=== PATIENT | male | born 1940 | race African-American/Black ===

== ENCOUNTER 2018-11-10 16:22 | Emergency (ER) | payer OTHER, MEDICARE ==
--- OUTSIDE RECORDS SUMMARY | 2018-11-10 16:24 | XMS REPORT ---
:1940 [facility] Organization [facility] Address [address] [place] [address] [place] [id number] Care Team Providers Name Role Phone RAKEL KIDD Primary Care Provider Unavailable Problems This patient has no known problems. Allergies, Adverse Reactions, Alerts This patient has no known allergies or adverse reactions. Medications This patient has no known medications. Encounters Start End Encounter Admission Attending Care Care Encounter Date/Time Date/Time Type Type Clinicians Facility Department ID 2017-03-13 2017-03-13 Outpatient [facility] [id number] 13:31:00 13:31:00 2017-02-17 2017-02-17 Outpatient [facility] [id number] 10:49:00 10:49:00 Results Test Description Test Time Test Comments Text Results Atomic Results Result Comments XR BONE DENSITY (DXA)-AXIAL 2017-02-17 12:00:01 Location code: R 16HISTORY : Z79.899: OTHER FILM TESTS CHECKER (CURRENT) DRUG THERAPY COMPARISON: None.FINDINGS: Right femoral neck bone mineral density: 0.835 g/cm2, T score is -1.6,Z-score is not available. According to WHO classification, findings areosteopenic.Right hip total bone mineral density: 0.914 g/cm2, T score is -1.4,Z-score is not available. According to WHO classification, findings areosteopenic.Lumbar spine total bone mineral density: 1.231 g/cm2, T score is -0.7,Z-score is not available. According to WHO classification, findings arenormal. Impression:Bone mineralization by WHO Classification is osteopenia.The World Health Organization established that osteoporosis occurs at-2.5 SD below peak bone mass. In addition, osteopenia occurs at -1.0 SDto -2.5 SD below peak bone mass. Low bone mass is the single mostaccurate predictor for fracture risk.
[2018-11-10 17:14] LABS: Absolute Lymphocytes (CBC) 1.1 K/uL (0.7-4.9); Basophils % 0.4 % (0-1.3); Eosinophils % 1.7 % (0-4.4); Hematocrit 36.5 % (39.6-49.0); Lymphocytes % 9.7 % (15.3-44.8); MPV 6.6 fL (7.6-11.3); Monocytes % 8.7 % (3.3-12.3); RBC Red Blood Cell Count 4.19 M/uL (4.33-5.43)
[2018-11-10 17:15] LABS: Protime INR 1.05
--- NOTE | 2018-11-10 17:21 | RAD REPORT ---
EXAM DESCRIPTION: CT - Head Brain Wo Cont - 11/10/2018 5:14 pm CLINICAL HISTORY: Transient alteration of awareness, relapse COMPARISON: None. TECHNIQUE: Axial 5 mm thick images of the head were obtained without IV contrast. All CT scans are performed using dose optimization technique as appropriate and may include automated exposure control or mA/KV adjustment according to patient size. FINDINGS: No intracranial hemorrhage, mass, edema or shift of mid-line structures. No acute infarcti on changes seen. Mild atrophy and mild chronic ischemic change present. Ventricles are in proportion. Arterial and physiologic calcifications are present. Mastoid air cells and visualized portions of the paranasal sinuses are clear. No acute bony findings. IMPRESSION: Mild atrophy and chronic ischemic change. No acute intracranial finding seen.
[2018-11-10 17:43] LABS: ALT/SGPT 32 U/L (12-78); AST/SGOT 25 U/L (15-37); Albumin 3.5 g/dL (3.4-5.0); Alkaline Phosphatase 137 U/L (45-117); BUN Blood Urea Nitrogen 30 mg/dL (7-18); Bicarbonate 27 mmol/L (21-32); Bilirubin Direct 0.1 mg/dL (0-0.2); Bilirubin Total 0.4 mg/dL (0.2-1.0); Glucose Level 103 mg/dL (74-106); Magnesium 1.8 mg/dL (1.8-2.4); NT PRO-BNP 59 pg/mL (<450); Potassium 4.3 mmol/L (3.5-5.1); Protein, Total 7.8 g/dL (6.4-8.2); Sodium Level 139 mmol/L (136-145); Troponin (Emerg Dept Use Only) < 0.02 ng/mL (0.0-0.045)
--- NOTE | 2018-11-10 18:04 | RAD REPORT ---
EXAM DESCRIPTION: RAD - Chest Single View - 11/10/2018 5:36 pm CLINICAL HISTORY: Weakness, shortness of breath, altered mental status, hypertension COMPARISON: None. TECHNIQUE: AP portable chest image was obtained 1711 hours . FINDINGS: No peripheral mass or consolidation seen. No failure or volume overload. Left subclavian p acemaker in place. Heart and vasculature are normal. No measurable pleural effusion and no pneumothor ax. Piotr lumbar scoliotic changes and degenerative changes present. No acute bony abnormality seen. No acute aortic findings suspected. IMPRESSION: No acute cardiopulmonary process.
[2018-11-10] MEDS ORDERED: NA CHLORIDE 0.9% 1,000 ML ONE (19:09)
[2018-11-10 19:10] LABS: Urine Bacteria 20-50 /HPF (NONE SEEN); Urine Culture Reflex Order REFLEXED
[2018-11-10 19:18] LABS: Urine Blood 2+ (NEG); Urine Glucose NEGATIVE (NEG); Urine Protein 2+ (NEG); Urine Specific Gravity 1.015 (1.005-1.030); Urine pH 5.5 (5.0-7.0)
--- NOTE | 2018-11-10 19:20 | ER ---
Nurse's Notes [facility] Name: Chang De La Fuente Age: 78 yrs Sex: Male : 1940 Arrival Date: 11/10/2018 Time: 16:18 Bed 7 Private MD: Diagnosis: Dysequilibrium;dehydration;UTI;renal insufficiency Presentation: 11/10 16:19 Presenting complaint: EMS states: for a few months, pt has been shaking, cognitive hj function decreases per and shows lapses in memories; per [place] staff clinic, pt SBP is on 80 or 70's; EMS manual 130/70;. Transition of care: patient was not received from another setting of care. Onset of symptoms was November 10, 2018. Risk Assessment: Do you want to hurt yourself or someone else? Patient reports no desire to harm self or others. Initial Sepsis Screen: Does the patient meet any 2 criteria? No. Patient's initial sepsis screen is negative. Does the patient have a suspected source of infection? No. Patient's initial sepsis screen is negative. Care prior to arrival: None. 16:19 Method Of Arrival: EMS: [facility] 16:19 Acuity: ELY 3 hj Triage Assessment: 16:19 General: Appears in no apparent distress. uncomfortable, Behavior is calm, cooperative, hj appropriate for age. Pain: Denies pain. Historical: - Allergies: 16:19 No Known Allergies; hj - Home Meds: 16:19 amlodipine 5 mg tab 1 tab once daily [Active]; atorvastatin 80 mg oral tab 1 tab once hj daily [Active]; lisinopril-hydrochlorothiazide 20-12.5 mg oral tab 1 tab once daily [Active]; prazosin 2 mg Oral cap 1 cap 2 times per day [Active]; sertraline 100 mg oral tab 1 tab once daily [Active]; tamsulosin 0.4 mg oral cp24 1 cap once daily [Active]; triamcinolone acetonide 0.025 % Topical lotn 2 times per day [Active]; - PMHx: 16:19 Hyperlipidemia; Hypertension; BPH; hj - PSHx: 16:19 pacemaker; hj - Immunization history:: Adult Immunizations up to date. - Social history:: Smoking status: Patient/guardian denies using tobacco, Patient/guardian denies using alcohol. - Ebola Screening: : Patient negative for fever greater than or equal to 101.5 degrees Fahrenheit, and additional compatible Ebola Virus Disease symptoms Patient denies exposure to infectious person Patient denies travel to an Ebola-affected area in the 21 days before illness onset. - Family history:: not pertinent. - Hospitalizations: : No recent hospitalization is reported. Screenin:19 Abuse screen: Denies threats or abuse. Denies injuries from another. Nutritional hj screening: No deficits noted. Tuberculosis screening: No symptoms or risk factors identified. Fall Risk None identified. Assessment: 16:19 General: Appears in no apparent distress. uncomfortable, Behavior is calm, cooperative, hj appropriate for age. Pain: Denies pain. Neuro: Level of Consciousness is awake, alert, obeys commands, Oriented to person, place, time, situation, Appropriate for age. Cardiovascular: Capillary refill < 3 seconds Patient's skin is warm and dry. Respiratory: Airway is patent Respiratory effort is even, unlabored, Respiratory pattern is regular, symmetrical. GI: No signs and/or symptoms were reported involving the gastrointestinal system. : No signs and/or symptoms were reported regarding the genitourinary system. EENT: No signs and/or symptoms were reported regarding the EENT system. Derm: No signs and/or symptoms reported regarding the dermatologic system. Musculoskeletal: No signs and/or symptoms reported regarding the musculoskeletal system. 17:19 Reassessment: Patient and/or family updated on plan of care and expected duration. Pain hj level reassessed. Patient is alert, oriented x 3, equal unlabored respirations, skin warm/dry/pink. awaiting results and POC:. 18:03 Reassessment: Patient and/or family updated on plan of care and expected duration. Pain hj level reassessed. Patient is alert, oriented x 3, equal unlabored respirations, skin warm/dry/pink. awaiting POC:. 18:40 Reassessment: awaiting POC; family in room;. hj Vital Signs: 16:19 BP 135 / 70; Pulse 66; Resp 18; Temp 98.1(O); Pulse Ox 100% on R/A; Weight 77.11 kg; hj Height 6 ft. 0 in. (182.88 cm); Pain 0/10; 16:40 BP 117 / 74; Pulse 74; Resp 18; Pulse Ox 100% on R/A; hj 18:04 BP 118 / 70; Pulse 72; Resp 18; Pulse Ox 99% on R/A; hj 18:40 BP 131 / 78; Pulse 60; Resp 18; Pulse Ox 99% on R/A; hj 19:42 BP 166 / 83; Pulse 65; Resp 17; Pulse Ox 99% ; Pain 0/10; tl1 20:26 BP 149 / 83; Pulse 68; Resp 17; Temp 98.2; Pulse Ox 100% ; Pain 0/10; tl1 16:19 Body Mass Index 23.06 (77.11 kg, 182.88 cm) ED Course: 16:18 Patient arrived in ED. hj 16:19 Arm band placed on right wrist. hj 16:19 Patient has correct armband on for positive identification. Placed in gown. Bed in low hj position. Call light in reach. Side rails up X 1. Adult w/ patient. 16:19 Maintain EMS IV. Dressing intact. Good blood return noted. Site clean \T\ dry. Gauge \T\ hj site: 20g L FA. 16:22 Triage completed. hj 16:29 Garrick Mota, LING is Primary Nurse. hj 16:36 Chidi Winchester MD is Attending Physician. wa 17:14 CT completed. Patient tolerated procedure well. Patient moved to CT. Patient moved back nj from CT. 17:15 CT Head Brain wo Cont In Process Unspecified. EDMS 17:36 XRAY Chest (1 view) In Process Unspecified. EDMS 19:18 Jason Ansari MD is Referral Physician. wa 20:30 IV discontinued, intact, bleeding controlled, No redness/swelling at site. Pressure tl1 dressing applied. 20:41 No provider procedures requiring assistance completed. tl1 Administered Medications: 18:53 Drug: NS 0.9% 1000 ml Route: IV; Rate: 1 bolus; Site: right forearm; hj 18:56 Follow up: IV Status: Infusion continued upon admission hj 20:27 Follow up: IV Status: Completed infusion tl1 19:30 Drug: Rocephin - (cefTRIAXone) 2 grams Route: IVPB; Infused Over: 30 mins; Site: right tl1 forearm; 20:00 Follow up: IV Status: Completed infusion; IV Intake: 100ml tl1 Intake: 20:00 IV: 100ml; Total: 100ml. tl1 Outcome: 19:19 Discharge ordered by . arturo 20:30 Discharged to home via wheelchair. tl1 20:30 Condition: good 20:30 Discharge instructions given to patient, family, Instructed on discharge instructions, follow up and referral plans. Demonstrated understanding of instructions, follow-up care, medications, Prescriptions given X 1. 20:36 Patient left the ED. tl1 Signatures: Dispatcher [employer] EDMS Griselda Farrell RN RN tl1 Garrick Mota RN RN hj Jordan, Nathan nj Appiah, William, MD MD wa
--- NOTE | 2018-11-10 19:20 | EDPHYS ---
Physician Documentation [facility] Name: Chang De La Fuente Age: 78 yrs Sex: Male : 1940 Arrival Date: 11/10/2018 Time: 16:18 Bed 7 Private MD: ED Physician Chidi Winchester HPI: 11/10 16:58 This 78 yrs old Black Male presents to ER via EMS with complaints of Blood Pressure wa Problem. 16:58 The patient's problem is reported as per pt's , has noted cognitive decline, wa tremor, falls, weakness and memory lapses over the past several months. per EMS, told to come to ED due to low BP although EMS pressure noted wnl. pt has h/o HTN. his PMDs at the [place]. Onset: The symptoms/episode began/occurred 5 month(s) ago. Duration: The episode is continuous. Context: Possible contributing factors include: unknown. as noted in description above. The symptoms are alleviated by nothing. The symptoms are aggravated by nothing. Associated signs and symptoms: Pertinent positives: weakness, Pertinent negatives: abdominal pain, agitation, blurred vision, chest pain, combativeness, confusion, diaphoresis, diarrhea, dizziness, headache, lightheadedness, nausea, numbness, palpitations, seizure, shortness of breath, tingling, vertigo, vomiting. Severity of symptoms: At their worst the symptoms were mild in the emergency department the symptoms are unchanged. Patient's baseline: Neuro: alert and fully oriented, Motor: no deficits, Ambulation: walks without assistance, Speech: normal, The patient has a previous history of HTN. The patient has not experienced similar symptoms in the past. The patient has not recently seen a physician. Historical: - Allergies: 16:19 No Known Allergies; hj - Home Meds: 16:19 amlodipine 5 mg tab 1 tab once daily [Active]; atorvastatin 80 mg oral tab 1 tab once hj daily [Active]; lisinopril-hydrochlorothiazide 20-12.5 mg oral tab 1 tab once daily [Active]; prazosin 2 mg Oral cap 1 cap 2 times per day [Active]; sertraline 100 mg oral tab 1 tab once daily [Active]; tamsulosin 0.4 mg oral cp24 1 cap once daily [Active]; triamcinolone acetonide 0.025 % Topical lotn 2 times per day [Active]; - PMHx: 16:19 Hyperlipidemia; Hypertension; BPH; hj - PSHx: 16:19 pacemaker; hj - Immunization history:: Adult Immunizations up to date. - Social history:: Smoking status: Patient/guardian denies using tobacco, Patient/guardian denies using alcohol. - Ebola Screening: : Patient negative for fever greater than or equal to 101.5 degrees Fahrenheit, and additional compatible Ebola Virus Disease symptoms Patient denies exposure to infectious person Patient denies travel to an Ebola-affected area in the 21 days before illness onset. - Family history:: not pertinent. - Hospitalizations: : No recent hospitalization is reported. ROS: 17:03 Constitutional: Negative for fever, chills, and weight loss, Eyes: Negative for injury, wa pain, redness, and discharge, ENT: Negative for injury, pain, and discharge, Neck: Negative for injury, pain, and swelling, Cardiovascular: Negative for chest pain, palpitations, and edema, Respiratory: Negative for shortness of breath, cough, wheezing, and pleuritic chest pain, Abdomen/GI: Negative for abdominal pain, nausea, vomiting, diarrhea, and constipation, Back: Negative for injury and pain, : Negative for injury, bleeding, discharge, and swelling, MS/Extremity: Negative for injury and deformity, Skin: Negative for injury, rash, and discoloration. 17:03 Neuro: Positive for weakness, tremors, falls, memory lapses. 17:03 All other systems are negative. Exam: 17:03 Constitutional: This is a well developed, well nourished patient who is awake, alert, wa and in no acute distress. Head/Face: Normocephalic, atraumatic. Eyes: Pupils equal round and reactive to light, extra-ocular motions intact. Lids and lashes normal. Conjunctiva and sclera are non-icteric and not injected. Cornea within normal limits. Periorbital areas with no swelling, redness, or edema. ENT: Nares patent. No nasal discharge, no septal abnormalities noted. Tympanic membranes are normal and external auditory canals are clear. Oropharynx with no redness, swelling, or masses, exudates, or evidence of obstruction, uvula midline. Mucous membranes moist. Neck: Trachea midline, no thyromegaly or masses palpated, and no cervical lymphadenopathy. Supple, full range of motion without nuchal rigidity, or vertebral point tenderness. No Meningismus. Chest/axilla: Normal chest wall appearance and motion. Nontender with no deformity. No lesions are appreciated. Cardiovascular: Regular rate and rhythm with a normal S1 and S2. No gallops, murmurs, or rubs. Normal PMI, no JVD. No pulse deficits. Respiratory: Lungs have equal breath sounds bilaterally, clear to auscultation and percussion. No rales, rhonchi or wheezes noted. No increased work of breathing, no retractions or nasal flaring. Abdomen/GI: Soft, non-tender, with normal bowel sounds. No distension or tympany. No guarding or rebound. No evidence of tenderness throughout. Back: No spinal tenderness. No costovertebral tenderness. Full range of motion. Skin: Warm, dry with normal turgor. Normal color with no rashes, no lesions, and no evidence of cellulitis. MS/ Extremity: Pulses equal, no cyanosis. Neurovascular intact. Full, normal range of motion. Psych: Awake, alert, with orientation to person, place and time. Behavior, mood, and affect are within normal limits. 17:03 Neuro: Orientation: is normal, Mentation: is normal, Cranial nerves: grossly normal, Cerebellar function: mild dysmetria noted on ceva-ckilgolsy-lxso, and oaos-pw-nvru, Motor: is normal, Gait: is steady. 19:22 Radiologist reports: atrophy. chronic ischemia wa Vital Signs: 16:19 BP 135 / 70; Pulse 66; Resp 18; Temp 98.1(O); Pulse Ox 100% on R/A; Weight 77.11 kg; hj Height 6 ft. 0 in. (182.88 cm); Pain 0/10; 16:40 BP 117 / 74; Pulse 74; Resp 18; Pulse Ox 100% on R/A; hj 18:04 BP 118 / 70; Pulse 72; Resp 18; Pulse Ox 99% on R/A; hj 18:40 BP 131 / 78; Pulse 60; Resp 18; Pulse Ox 99% on R/A; hj 19:42 BP 166 / 83; Pulse 65; Resp 17; Pulse Ox 99% ; Pain 0/10; tl1 20:26 BP 149 / 83; Pulse 68; Resp 17; Temp 98.2; Pulse Ox 100% ; Pain 0/10; tl1 16:19 Body Mass Index 23.06 (77.11 kg, 182.88 cm) hj MDM: 16:36 Patient medically screened. 17:06 Differential diagnosis: CVA, TIA, Dementia, paralysis, metabolic disorder, now chronic wi condition. will check CT brain and electrolytes. may need out pt MRI if negative work up in ED. Data reviewed: vital signs, nurses notes. 18:49 Test interpretation: by ED physician or midlevel provider: CT brain: chronic ischemic wi changes. mild atrophy. CXR: no acute process. . 18:52 Test interpretation: by ED physician or midlevel provider: wbc 11.4 H/H 12.0/36.5. BUN wa 30, Cr 1.44. . 18:54 Test interpretation: by ED physician or midlevel provider: EKG: HR 61. paced atria. wa 18:55 ED course: fluid bolus for potential dehydration based on UA and BUN/Cr. will await wi urine microscopy to r/o UTI. 19:16 Test interpretation: by ED physician or midlevel provider: UA noted for UTI. rocephin wa given. . Response to treatment: the patient's symptoms have markedly improved after treatment. 19:16 Special discussion: renal insufficient. dehydration? Rocephin given. IV F bolus given. wi will have f/u with neurology for MRI. due to mild dysequilibrium. . 11/10 16:51 Order name: NT PRO-BNP wi 11/10 16:51 Order name: Basic Metabolic Panel 11/10 16:51 Order name: CBC with Diff; Complete Time: 18:51 11/10 16:51 Order name: LFT's; Complete Time: 18:51 11/10 16:51 Order name: Magnesium; Complete Time: 18:51 11/10 16:51 Order name: PT-INR; Complete Time: 18:48 11/10 16:51 Order name: Troponin (emerg Dept Use Only); Complete Time: 18:48 11/10 16:51 Order name: XRAY Chest (1 view); Complete Time: 18:48 11/10 16:52 Order name: NT PRO-BNP; Complete Time: 18:48 EDMS 11/10 16:52 Order name: Basic Metabolic Panel; Complete Time: 18:51 EDMS 11/10 16:52 Order name: Urine Microscopic Only; Complete Time: 19:14 wi 11/10 19:15 Interpretation: Abnormal. wi 11/10 16:52 Order name: TSH; Complete Time: 18:48 wi 11/10 18:51 Order name: Urine Dipstick--Ancillary (enter results) em1 11/10 19:11 Order name: Urine Culture [facility] 11/10 16:51 Order name: EKG; Complete Time: 16:52 wi 11/10 16:51 Order name: Cardiac monitoring; Complete Time: 16:52 wi 11/10 16:51 Order name: EKG - Nurse/Tech; Complete Time: 16:52 wi 11/10 16:51 Order name: IV Saline Lock; Complete Time: 16:52 wi 11/10 16:51 Order name: Labs collected and sent; Complete Time: 16:52 wi 11/10 16:51 Order name: O2 Sat Monitoring; Complete Time: 16:52 wi 11/10 16:51 Order name: CT Head Brain wo Cont; Complete Time: 18:48 wi 11/10 16:52 Order name: Urine Dipstick-Ancillary (obtain specimen); Complete Time: 18:43 wi Administered Medications: 18:53 Drug: NS 0.9% 1000 ml Route: IV; Rate: 1 bolus; Site: right forearm; 18:56 Follow up: IV Status: Infusion continued upon admission 20:27 Follow up: IV Status: Completed infusion tl1 19:30 Drug: Rocephin - (cefTRIAXone) 2 grams Route: IVPB; Infused Over: 30 mins; Site: right tl1 forearm; 20:00 Follow up: IV Status: Completed infusion; IV Intake: 100ml tl1 Disposition: 11/10/18 19:19 Discharged to Home. Impression: Dysequilibrium, dehydration, UTI, renal insufficiency. - Condition is Stable. - Discharge Instructions: Urinary Tract Infection, Adult, Xvvb-wd-Olug, Dehydration, Adult, Hmib-dx-Hlwx. - Prescriptions for Keflex 500 mg Oral Capsule - take 1 capsule by ORAL route every 8 hours for 7 days; 21 capsule. - Medication Reconciliation Form, Thank You Letter, Antibiotic Education, Prescription Opioid Use form. - Follow up: Jason Ansari MD; When: 1 - 2 days; Reason: Recheck today's complaints. - Problem is new. - Symptoms have improved. - Notes: stay hydrated. take antibiotics. do not drive and walk by yourself upstairs. see the neurologist for further evaluation with an MRI. return for any worsening concerns Signatures: Dispatcher [employer] EDGriselda Velasco RN RN tl1 Garrick Mota RN RN Chidi Winchester MD MD wa Corrections: (The following items were deleted from the chart) 20:36 19:19 11/10/2018 19:19 Discharged to Home. Impression: Dysequilibrium; dehydration; tl1 UTI; renal insufficiency. Condition is Stable. Forms are Medication Reconciliation Form, Thank You Letter, Antibiotic Education, Prescription Opioid Use. Follow up: Jason Ansari; When: 1 - 2 days; Reason: Recheck today's complaints. Problem is new. Symptoms have improved. wa
[2018-11-10] MEDS ORDERED: CEFTRIAXONE 1000 MG/VIAL ONE (19:42)
[2018-11-10] MEDS ORDERED: NA CHLORIDE 0.9% 100 ML IV ONE (19:43)
--- NOTE | 2018-11-11 06:54 | EKG ---
Test Date: 2018-11-10 Test Time: 16:16:50 [facility]: [facility] MEASUREMENT RESULTS: Intervals: Rate: 61 VT: 218 QRSD: 100 QT: 392 QTc: 394 Dewy Rose: P: 58 VT: 218 QRS: 52 T: 61 INTERPRETIVE STATEMENTS: Atrial-paced rhythm with prolonged AV conduction Abnormal ECG No previous ECG available for comparison Electronically Signed On 11-11-18 06:53:13 CDT by Steve Clark
== END 2018-11-10 20:36 | disposition home or self-care (01) ==
LOC: ER 16:22
DX: E86.0 Dehydration (principal); N39.0 Urinary tract infection, site not specified; N28.9 Disorder of kidney and ureter, unspecified; I10 Essential (primary) hypertension; E78.5 Hyperlipidemia, unspecified; Z95.0 Presence of cardiac pacemaker
CPT/HCPCS: 96365; 93005; 87088; 85025; 87086; 80048; 36415; 83735; 85610; 80076; 84443; 87077; 87186; 84484; 83880; 70450; 71045; 99284; J7030; 81003; 81015